=== PATIENT | female | born 1950 ===

== ENCOUNTER 2022-06-09 10:08 | Inpatient (IN) | payer MEDICARE, SELFPAY ==
--- NOTE | ~2022-06-09 | XR_ITS ---
EXAMINATION: XR CHEST CLINICAL INFORMATION: Shortness of breath COMPARISON: None available. TECHNIQUE: 2 views of the chest were obtained. FINDINGS: Heart is enlarged. Aortic calcification seen. Central vascular prominence. There is mild reticular prominence, with hazy opacities in the right mid to lower lung. Question hazy opacity left lower lung. These findings could represent mild pulmonary edema versus inflammatory/infectious process. Small right pleural effusion. No pneumothorax. Thoracic spine degeneration. XR/XR chest 2V IMPRESSION: Cardiomegaly. Central vascular congestion. Reticular prominence, hazy opacities in the lower lungs could reflect mild pulmonary edema or could represent infectious/inflammatory process. Small right effusion.
[2022-06-09 10:21] VITALS: BP 208/53; PULSE 66; RESP 18; TEMP 36.1; O2SAT 99; BMI 30.4
--- NOTE | 2022-06-09 10:27 | ECG_ITS ---
Test Reason : hypertension Blood Pressure : / mmHG Vent. Rate : 063 BPM Atrial Rate : 063 BPM P-R Int : 186 ms QRS Dur : 078 ms QT Int : 430 ms P-R-T Axes : 058 017 073 degrees QTc Int : 440 ms Normal sinus rhythm Normal ECG No previous ECGs available Referred By: Generic ED Physician Electronically Signed By:Hari Simpson
[2022-06-09 11:37] LABS: Basophils Percent Auto 0.7 % (0-2); Eosinophils Percent Auto 0.5 % (0-4); Hematocrit 32.5 % (37.0-47.0); Hemoglobin 10.4 g/dl (12.0-16.0); Imm Gran Abs Auto 0.03 X10*3/uL (0.00-0.03); Imm Gran Pct Auto 0.7 % (0.0-0.4); Lymphocytes Absolute Auto 0.6 X10*3/uL (1.2-4.9); Lymphocytes Percent Auto 13.2 % (20-40); MANUAL DIFF FLAG NO; Mean Corpuscular Hemoglobin 30.4 pg (27.0-33.0); Mean Platelet Volume 9.2 fL (9.4-12.3); Monocytes Absolute Auto 0.3 X10*3/uL (0.1-1.2); Monocytes Percent Auto 7.9 % (2-11); Neutrophils Absolute Auto 3.2 x10*3/uL (2.0-8.3); Platelet Count 206 X10*3/uL (160-400); Red Blood Count 3.42 X10*6/uL (4.20-5.50); Red Cell Distribution Width 13.9 % (11.0-16.0); White Blood Count 4.2 X10*3/uL (4.8-10.8)
[2022-06-09 12:00] VITALS: BP 124/43; PULSE 63; RESP 13; TEMP 36.6; O2SAT 97
[2022-06-09 12:08] LABS: B Type Natriuretic Peptide 923 pg/mL (<100)
[2022-06-09 12:12] LABS: Troponin-I High Sensitivity 38.3 ng/L (<3.5-17.0)
[2022-06-09 12:21] LABS: Alanine Aminotransferase 18 U/L (0-31); Albumin Level 3.7 g/dL (3.5-5.0); Alkaline Phosphatase 172 U/L (39-117); Anion Gap 18 (12-20); Aspartate Amino Transferase 19 U/L (5-31); Bilirubin Total 0.6 mg/dL (0.0-1.0); Blood Urea Nitrogen 59 mg/dL (9-16); Calcium 8.6 mg/dL (8.4-10.2); Carbon Dioxide 23 mmol/L (22-29); Chloride 102 mmol/L (96-108); Estimated Glomerular Filt Rate 5; Glucose Random 122 mg/dL (60-115); Sodium 137 mmol/L (135-145); Total Protein 6.3 g/dL (6.5-8.0)
--- NOTE | 2022-06-09 12:38 | ED_ITS ---
HPI - General Adult General Chief complaint: General Medical Stated complaint: Needs dialysis Time Seen by Provider: 06/09/22 10:52 Source: patient and family Mode of arrival: ambulatory History of Present Illness HPI narrative: 72-year-old female known diabetic and on dialysis in [facility] on Wednesday, Wednesday, Wednesday left fluid on vacation in came up to [place] and does not have a location for dialysis due to confusion with the insurance company. Patient states that she otherwise feels well but she missed her dialysis yesterday. However, on reviewing the triage note it appears that patient reported abdominal cramping with nausea/vomiting/diarrhea and headaches since yesterday. However, patient is had no nausea/vomiting/diarrhea since arrival to the emergency room. Related Data Allergies Allergy/AdvReac Type Severity Reaction Status Date / Time codeine Allergy Nausea and Verified 06/09/22 11:26 Vomiting Review of Systems Review of Systems: Pertinent positives and negatives as stated in HPI [facility] Past Medical History Source: nursing notes reviewed Social History Social History Advance Directives: No Advance Directives Information Provided: Yes Physical Exam ED Vital Signs: Vital Signs - 24 hr 06/09/22 10:21 06/09/22 12:00 Temperature 96.9 F 97.8 F Pulse Rate 66 63 Respiratory Rate 18 13 Blood Pressure 208/53 H 124/43 L Pulse Oximetry 99 97 Oxygen Delivery Method Room Air Room Air BMI result Body Mass Index 30.4 VITAL SIGNS: Reviewed. GENERAL: Well developed, well nourished, in no acute distress. HEAD: Normocephalic/atraumatic EYES: PERRLA, EOMI EARS: Ext canals without abnormality NOSE: Nares patent bilateral OROPHARYNX: no oral lesions noted, posterior pharynx clear NECK: Supple, no adenopathy LUNGS: Mild rales in right base, no tachypnea, No adventitious sounds or accessory muscle use. SpO2<97> CARDIOVASCULAR: Regular rate and rhythm without noted murmurs, no JVD or lower extremity edema. ABDOMEN: Soft, non-tender, non-distended with bowel sounds. MUSCULOSKELETAL: No tenderness, deformities, or effusions noted on gross inspection. EXTREMITIES: No cyanosis, clubbing or edema; RUE: AV fistula in place with good thrill and bruit. SKIN: Inspection of the skin reveals no rashes NEUROLOGIC: Alert and oriented x 4. Strength and sensation to light touch were grossly intact x 4. Medical Decision Making Medical Decision Making MDM Narrative: 72-year-old female with history and clinical presentation consistent with missed dialysis apparently due to insurance and communication issues. Now presents here to the emergency room but is currently asymptomatic. I reviewed all investigations and my interpretation is that this patient has chronically stable laboratory results that are consistent with underlying dialysis dependency. Patient is not hypoxic. 1240: I have a page out to Nephrology to ascertain whether not we can provide dialysis for this patient. 1255: I discussed the case with Dr Da Silva who recommends admission, 10g of Lokelma, and will undergo dialysis in the morning. I discussed case with inpatient hospitalist who accepts admission. I also informed the patient of the plan. Differential Diagnosis Please see the discussion above Consult Healthcare Provider Management of the patient was discussed with: Production Control Expediter Please see the discussion above Lab Data Please see the discussion above 06/09/22 11:31 06/09/22 11:31 Labs: Lab Results 06/09/22 06/09/22 06/09/22 Range/Units 11:31 11:31 11:31 WBC 4.2 L (4.8-10.8) X10*3/uL RBC 3.42 L (4.20-5.50) X10*6/uL Hgb 10.4 L (12.0-16.0) g/dl Hct 32.5 L (37.0-47.0) % MCV 95.0 (80.0-98.0) fL MCH 30.4 (27.0-33.0) pg MCHC 32.0 (31.0-35.0) g/dl RDW 13.9 (11.0-16.0) % Plt Count 206 (160-400) X10*3/uL MPV 9.2 L (9.4-12.3) fL Immature Gran % (Auto) 0.7 H (0.0-0.4) % Neut % (Auto) 77.0 H (45-73) % Lymph % (Auto) 13.2 L (20-40) % [place] % (Auto) 7.9 (2-11) % Eos % (Auto) 0.5 (0-4) % Baso % (Auto) 0.7 (0-2) % Lymph # (Auto) 0.6 L (1.2-4.9) X10*3/uL [place] # (Auto) 0.3 (0.1-1.2) X10*3/uL Eos # (Auto) 0.0 (0.0-0.4) X10*3/uL Baso # (Auto) 0.0 (0.0-0.2) X10*3/uL Abs Immat Gran (auto) 0.03 (0.00-0.03) X10*3/uL Absolute Neuts (auto) 3.2 (2.0-8.3) x10*3/uL Absolute Nucleated RBC 0.000 (0.0-0.012) X10*3/uL Nucleated RBC % (auto) 0.0 (0.0-0.2) /100WBC Sodium 137 (135-145) mmol/L Potassium 6.0 H* (3.3-5.1) mmol/L Chloride 102 (96-108) mmol/L Carbon Dioxide 23 (22-29) mmol/L Anion Gap 18 (12-20) BUN 59 H (9-16) mg/dL Creatinine 7.46 H* (0.5-1.4) mg/dL Estim Creat Clear Calc 6.0 Estimated GFR 5 Random Glucose 122 H (60-115) mg/dL Calcium 8.6 (8.4-10.2) mg/dL Total Bilirubin 0.6 (0.0-1.0) mg/dL AST 19 (5-31) U/L ALT 18 (0-31) U/L Alkaline Phosphatase 172 H (39-117) U/L Troponin I High Sens 38.3 H (<3.5-17.0) ng/L B-Natriuretic Peptide (<100) pg/mL Total Protein 6.3 L (6.5-8.0) g/dL Albumin 3.7 (3.5-5.0) g/dL 06/09/ Range/Units 11:31 WBC (4.8-10.8) X10*3/uL RBC (4.20-5.50) X10*6/uL Hgb (12.0-16.0) g/dl Hct (37.0-47.0) % MCV (80.0-98.0) fL MCH (27.0-33.0) pg MCHC (31.0-35.0) g/dl RDW (11.0-16.0) % Plt Count (160-400) X10*3/uL MPV (9.4-12.3) fL Immature Gran % (Auto) (0.0-0.4) % Neut % (Auto) (45-73) % Lymph % (Auto) (20-40) % [place] % (Auto) (2-11) % Eos % (Auto) (0-4) % Baso % (Auto) (0-2) % Lymph # (Auto) (1.2-4.9) X10*3/uL [place] # (Auto) (0.1-1.2) X10*3/uL Eos # (Auto) (0.0-0.4) X10*3/uL Baso # (Auto) (0.0-0.2) X10*3/uL Abs Immat Gran (auto) (0.00-0.03) X10*3/uL Absolute Neuts (auto) (2.0-8.3) x10*3/uL Absolute Nucleated RBC (0.0-0.012) X10*3/uL Nucleated RBC % (auto) (0.0-0.2) /100WBC Sodium (135-145) mmol/L Potassium (3.3-5.1) mmol/L Chloride (96-108) mmol/L Carbon Dioxide (22-29) mmol/L Anion Gap (12-20) BUN (9-16) mg/dL Creatinine (0.5-1.4) mg/dL Estim Creat Clear Calc Estimated GFR Random Glucose (60-115) mg/dL Calcium (8.4-10.2) mg/dL Total Bilirubin (0.0-1.0) mg/dL AST (5-31) U/L ALT (0-31) U/L Alkaline Phosphatase (39-117) U/L Troponin I High Sens (<3.5-17.0) ng/L B-Natriuretic Peptide 923 H (<100) pg/mL Total Protein (6.5-8.0) g/dL Albumin (3.5-5.0) g/dL Independent Interpretation I performed an independent interpretation of an: EKG Interpretation: Normal sinus rhythm, HR-63, no STEMI, NJ/QRS/QTC is within normal limits, no noted peaked T-waves. Discharge Plan Discharge Clinical Impression: ESRD needing dialysis, Hyperkalemia Patient Disposition: Admitted As Inpatient
--- NOTE | 2022-06-09 13:00 | PC.NURSE ---
pt a+o x4, pt vacationing from [place], on dialysis mwf. did not have dialysis yesterday, brought to ed to have dialysis done.
--- NOTE | 2022-06-09 13:30 | P.HPHOSP_ITS ---
The patient was seen and evaluated with PAT Morse. I agree with her note, assessment and plan with the following. The patient needs admission for dialysis and nephrology eval pending safe discharge plan and further work up as listed Rest of evaluations by IRRIGATION WORKER note. History of Present Illness Date of Service: 06/09/22 Attending physician on admission: Mavis Del Castillo Chief Complaint: n/v/d, esrd 72-year-old female with history of hypothyroidism retention, coronary artery disease, ESRD on dialysis MWF, mild intermittent asthma, insulin-dependent type 2 diabetes, and anemia of chronic disease presented to the ED as she missed her dialysis appointment yesterday. She is visiting [place] from [place] and prior to arrival has set up dialysis appointment yesterday but apparently there was some confusion with the insurance company and she was not dialyzed. The patient also reports some nausea, vomiting, diarrhea, and headaches since yesterday but no episodes since arrival. Apparently on arrival, was quite hypertensive at 208/53 but this 124/43 without any therapeutic intervention. Vitals otherwise stable. Hematology studies without significant abnormality. Creatinine 7.46, BUN 59. Sodium 137, potassium 6.0, chloride 102, CO2 23, A/G 18. Initial troponin 38.3, repeat pending. BNP 923 EKG showing NSR, rate 63, No ST/T wave abnormality. CXR report pending though on my review possible right sided pleural effusion and pulmonary vascular congestion. She does deny any shortness of breath, dyspnea on exertion, orthopnea, palpitations, chest pain. ED provider discussed case with Dr. Ramsey who is recommending admission for dialysis tomorrow. Review of Systems Review of Systems: General: No fevers, malaise, unintentional weight loss HEENT: No blurred vision, diplopia. No sore throat, nasal congestion, rhinorrhea, sinus pain, ear pain Cardiovascular: No chest pain, palpitations, or leg edema Respiratory: No shortness of breath, wheezing, cough GI: +n/v/d. No abdominal pain, constipation, melena, hematochezia : No dysuria, hematuria, increased urinary frequency, decreased urinary output MSK: No myalgia, back pain Neuro: No weakness, paresthesias. +headache Skin: No rashes or lesions [facility] Medical History (Updated 06/09/22 @ 13:42 by PAT Morse) Anemia of chronic disease Asthma AV fistula ESRD needing dialysis HTN (hypertension) Hypothyroid Type 2 diabetes mellitus Social History (Updated 06/09/22 @ 13:43 by PAT Morse) Household Members: None Housing: Apartment Do you presently have visiting nurse or other home services: No Alcohol intake: never Patient Tobacco Use Status: Former Tobacco user service: No Current occupational status: retired Meds Allergies Allergy/AdvReac Type Severity Reaction Status Date / Time codeine Allergy Nausea and Verified 06/09/22 11:26 Vomiting Active Medications: Current Medications Acetaminophen (Acetaminophen 325 Mg Tablet) 650 mg PO Q6H PRN PRN Reason: Pain, Mild (Pain Scale 1-3) Heparin Sodium (Porcine) (Heparin Sodium,Porcine 5,000 Unit/Ml Vial) 5,000 unit SUBCUT Q12H TORITO Lidocaine HCl (Lidocaine Hcl 1 % Mpf 2 Ml Vial) 0.5 ml SUBCUT MOWEFR@1645 TORITO Ondansetron HCl (Ondansetron Hcl 4 Mg/2 Ml Vial) 4 mg IVPUSH Q8H PRN PRN Reason: Nausea and Vomiting Sodium Chloride (0.9 % Sodium Chloride Flush 3 Ml Syringe) 3 ml IVFLUSH QSHIFT TORITO Home Medications Medication Instructions Recorded Confirmed Last Taken Type ascorbic acid (vitamin C) 1,000 mg 1,000 mg PO DAILY 06/09/22 06/09/22 06/09/22 History tablet (Vitamin C) aspirin 81 mg tablet,delayed 81 mg PO DAILY 06/09/22 06/09/22 06/09/22 History release bumetanide 2 mg tablet 1 mg PO BID 06/09/22 06/09/22 06/09/22 History carvedilol 25 mg tablet 25 mg PO BID 06/09/22 06/09/22 06/09/22 History cholecalciferol (vitamin D3) 50 50 mcg PO DAILY 06/09/22 06/09/22 06/09/22 History mcg (2,000 unit) tablet clopidogrel 75 mg tablet 75 mg PO DAILY 06/09/22 06/09/22 06/09/22 History cyanocobalamin (vitamin B-12) 1,000 mcg PO DAILY 06/09/22 06/09/22 06/09/22 History 1,000 mcg tablet hydralazine 50 mg tablet 50 mg PO TID 06/09/22 06/09/22 06/09/22 History insulin NPH isoph U-100 human 100 8 unit subcut TID 06/09/22 06/09/22 Unknown History unit/mL (3 mL) subcutaneous pen (Novolin N FlexPen) insulin glargine 100 unit/mL (3 7 unit subcut BEDTIME 06/09/22 06/09/22 Unknown History mL) subcutaneous pen (Lantus Solostar U-100 Insulin) isosorbide mononitrate 60 mg 60 mg PO DAILY 06/09/22 06/09/22 06/09/22 History tablet,extended release 24 hr levothyroxine 150 mcg tablet 150 mcg PO DAILY@0600 06/09/22 06/09/22 06/09/22 History nifedipine 30 mg tablet,extended 30 mg PO DAILY 06/09/22 06/09/22 06/09/22 History release rosuvastatin 20 mg tablet 20 mg PO BEDTIME 06/09/22 06/09/22 06/08/22 History Physical Exam Vital Signs and Narrative: Vital Signs: Last Vital Signs Temp 97.8 F 06/09/22 12:00 Pulse 63 06/09/22 12:00 Resp 13 06/09/22 12:00 BP 124/43 L 06/09/22 12:00 Pulse Ox 97 06/09/22 12:00 O2 Del Method Room Air 06/09/22 12:00 BMI result Body Mass Index 30.4 Constitutional - Awake and Alert, No apparent distress Eyes - PERRLA, EOMI Cardiovascular - S1S2, RRR, No edema Respiratory - Normal lung expansion, Normal respiratory effort, No respiratory distress, CTA bilaterally Gastrointestinal - NT / ND; +BS; No rebound or guarding Extremities - no calf tenderness bilaterally, no swelling. AV fistula in place right arm Skin - Warm/Dry Neurological - Alert & oriented x3 Psychological - Appropriate affect Results Labs 06/09/22 11:31 06/09/22 11:31 Labs: Laboratory Results - last 24 hr 06/09/22 06/09/22 06/09/22 11:31 11:31 11:31 MCV 95.0 MCH 30.4 MCHC 32.0 RDW 13.9 Plt Count 206 MPV 9.2 L Immature Gran % (Auto) 0.7 H Neut % (Auto) 77.0 H Lymph % (Auto) 13.2 L [place] % (Auto) 7.9 Eos % (Auto) 0.5 Baso % (Auto) 0.7 Lymph # (Auto) 0.6 L [place] # (Auto) 0.3 Eos # (Auto) 0.0 Baso # (Auto) 0.0 Abs Immat Gran (auto) 0.03 Absolute Neuts (auto) 3.2 Absolute Nucleated RBC 0.000 Nucleated RBC % (auto) 0.0 Anion Gap 18 Estim Creat Clear Calc 6.0 Estimated GFR 5 Random Glucose 122 H Calcium 8.6 Total Bilirubin 0.6 AST 19 ALT 18 Alkaline Phosphatase 172 H Troponin I High Sens 38.3 H B-Natriuretic Peptide Total Protein 6.3 L Albumin 3.7 06/09/22 11:31 MCV MCH MCHC RDW Plt Count MPV Immature Gran % (Auto) Neut % (Auto) Lymph % (Auto) [place] % (Auto) Eos % (Auto) Baso % (Auto) Lymph # (Auto) [place] # (Auto) Eos # (Auto) Baso # (Auto) Abs Immat Gran (auto) Absolute Neuts (auto) Absolute Nucleated RBC Nucleated RBC % (auto) Anion Gap Estim Creat Clear Calc Estimated GFR Random Glucose Calcium Total Bilirubin AST ALT Alkaline Phosphatase Troponin I High Sens B-Natriuretic Peptide 923 H Total Protein Albumin Assessment and Plan (1) ESRD needing dialysis: Status: Acute (2) Hyperkalemia: Status: Acute Plan 72-year-old female with history of hypothyroidism retention, coronary artery disease, ESRD on dialysis MWF, mild intermittent asthma, insulin-dependent type 2 diabetes, and anemia of chronic disease admitted for ESRD on dialysis with hyperkalemia #Acute hyperkalemia- 2/2 ESRD -EKG without peaked t's -K 6.0, given 10mg lokelma -Dialysis as planned per nephro -Monitor on telemetry #ESRD - AV fistula right arm -Creat 7.46, BUN 59 - Plan for dialysis tomorrow am per nephro -Apprecaite nephro input # insulin-dependent type 2 diabetes-without hyperglycemia -dose adjusted basal insulin -Humalog on sliding scale -diabetic diet -POC glucose #Mood disorder -continue home meds #CAD -continue asa, bb, statin, isosorbide #Hypothyroidism -continue levothyroxine #HTN- reasonably controlled -continue home meds #Elevated BNP/elevated trop- no sob, cp -likely cardiorenal -repeat trop pending -EKG nonischemic -CXR pending -Continue bumex DVT prophylaxis- heparin Full code Pt require inpt stay at least 2 midnights for management of ESRD requiring dialysis with hyperkalemia Time Spent With Patient Time: Total time managing care of this patient today ____ minutes. Quality Stroke Does the patient have a stroke diagnosis?: No VTE Prior VTE?: No VTE Risk Level:: Medical - moderate - high VTE Device Contraindication: Treatment Not Indicated VTE Drug Contraindication: N/A - Med Ordered
[2022-06-09] MEDS: Heparin Sodium,Porcine 5,000 UNIT/ML VIAL 5000 UNIT SUBCUT (13:48)
[2022-06-09] MEDS: Sodium Zirconium Cyclosilicate 10 GM POWD.PACK PO (13:48)
--- NOTE | 2022-06-09 13:57 | PHA.MEDREC ---
Pharmacy Consult ? Medication Reconciliation Pharmacy has completed the medication reconciliation. Patient able to communicate in Khmer, she had list at bedside. Able to confirm doses and timing
[2022-06-09 14:00] VITALS: BP 136/40; PULSE 67; RESP 13; TEMP 36.6; O2SAT 97
[2022-06-09 14:40] LABS: Troponin-I High Sensitivity 34.9 ng/L (<3.5-17.0)
--- NOTE | 2022-06-09 17:15 | PC.NURSE ---
report given to DORI Bucio. pt transported to room 473 by transporter.
[2022-06-09 17:20] VITALS: BP 180/52; PULSE 78; RESP 20; TEMP 36.6; O2SAT 91
[2022-06-09 17:22] LABS: Glucose, Whole Blood 276 mg/dL (60-115)
[2022-06-09] MEDS: Insulin Lispro 100 UNIT/ML 3 ML VIAL SUBCUT ×2 (17:25→21:48)
[2022-06-09 17:37] VITALS: BMI 30.4
[2022-06-09] MEDS: hydrALAZINE HCl 50 MG TABLET PO ×2 (17:54→21:46)
[2022-06-09 19:22] VITALS: BP 178/68; PULSE 71; RESP 18; TEMP 36.5; O2SAT 96
[2022-06-09 20:31] LABS: Glucose, Whole Blood 180 mg/dL (60-115)
[2022-06-09] MEDS: carvediloL 25 MG TABLET PO (21:46)
[2022-06-09] MEDS: Bumetanide 1 MG TABLET PO (21:46)
[2022-06-09] MEDS: Atorvastatin Calcium 80 MG TABLET PO (21:46)
[2022-06-09] MEDS: 0.9 % Sodium Chloride Flush 3 ML SYRINGE IVFLUSH (21:46)
[2022-06-09] MEDS: Insulin Glargine,Hum.rec.anlog 100 UNIT/ML 10 ML VIAL 7 UNIT SUBCUT (21:48)
[2022-06-09 23:07] VITALS: BP 151/67; PULSE 63; RESP 18; TEMP 36.4; O2SAT 92
[2022-06-10] VITALS (8 sets, daily range): BP systolic 130–215; BP diastolic 45–96; PULSE 58–68; RESP 18–20; TEMP 35.8–37; O2SAT 91–100
[2022-06-10] MEDS: Heparin Sodium,Porcine 5,000 UNIT/ML VIAL 5000 UNIT SUBCUT ×2 (02:21→13:26)
[2022-06-10] MEDS: Levothyroxine Sodium 150 MCG TABLET PO (06:17)
[2022-06-10] MEDS: Aspirin Enteric Coated 81 MG TABLET.DR PO (07:26)
[2022-06-10] MEDS: 0.9 % Sodium Chloride Flush 3 ML SYRINGE IVFLUSH ×3 (07:26→21:39)
[2022-06-10] MEDS: Clopidogrel Bisulfate 75 MG TABLET PO (07:27)
[2022-06-10] MEDS: Ascorbic Acid 500 MG TABLET 1000 MG PO (07:27)
[2022-06-10] MEDS: Cholecalciferol (Vitamin D3) 25 MCG TABLET 50 MCG PO (07:27)
[2022-06-10] MEDS: Cyanocobalamin (Vitamin B-12) 1,000 MCG TABLET 1000 MCG PO (07:27)
[2022-06-10] MEDS: Acetaminophen 325 MG TABLET 650 MG PO (07:32)
[2022-06-10 07:48] LABS: Glucose, Whole Blood 122 mg/dL (60-115)
[2022-06-10 08:03] LABS: MANUAL DIFF FLAG NO
[2022-06-10 08:13] LABS: Basophils Percent Auto 0.8 % (0-2); Eosinophils Percent Auto 0.3 % (0-4); Hematocrit 31.1 % (37.0-47.0); Imm Gran Abs Auto 0.02 X10*3/uL (0.00-0.03); Imm Gran Pct Auto 0.5 % (0.0-0.4); Lymphocytes Absolute Auto 0.6 X10*3/uL (1.2-4.9); Lymphocytes Percent Auto 15.1 % (20-40); Mean Corpuscular HGB Conc 32.2 g/dl (31.0-35.0); Mean Corpuscular Hemoglobin 30.4 pg (27.0-33.0); Mean Corpuscular Volume 94.5 fL (80.0-98.0); Mean Platelet Volume 9.8 fL (9.4-12.3); Monocytes Absolute Auto 0.3 X10*3/uL (0.1-1.2); Monocytes Percent Auto 7.7 % (2-11); Neutrophils Percent Auto 75.6 % (45-73); Platelet Count 214 X10*3/uL (160-400); Red Blood Count 3.29 X10*6/uL (4.20-5.50); Red Cell Distribution Width 13.8 % (11.0-16.0); White Blood Count 3.9 X10*3/uL (4.8-10.8)
[2022-06-10 08:42] LABS: Anion Gap 18 (12-20); Blood Urea Nitrogen 64 mg/dL (9-16); Calcium 8.1 mg/dL (8.4-10.2); Carbon Dioxide 22 mmol/L (22-29); Chloride 102 mmol/L (96-108); Creatinine Clr Calc Pharmacy 5.8; Estimated Glomerular Filt Rate 5; Glucose Random 104 mg/dL (60-115); Potassium 5.7 mmol/L (3.3-5.1); Sodium 136 mmol/L (135-145)
--- NOTE | 2022-06-10 08:47 | MHC.CM.PN ---
Addendum entered by Andie Navarro RN 06/10/22 09:26: CLARIFICATION PT HAS NOT BEEN VACCINATED FOR COVID 19 Addendum entered by Andie Navarro RN 06/10/22 08:52: PT USES [facility] LANIER AND SURFACE SUPERVISOR IS DR LADY MADRIGAL AT [facility] IN [place]. 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 PT VERIFIFES PCP IS CAREY BINGHAM, [facility] X2 AND REPORTS SON RUSSELL THAKUR IS HER HCP, PT DOES NOT HAVE COPY WITH HER. DC PLAN: RETURN TO SON'S HOME W/SON FOR TRANSPORT
[2022-06-10 09:12] LABS: HBS Num1 21.98 mIU/mL (0-7.99); HBc Num1 0.13 S/CO (0.00-0.79); HBsAGNum1 0.23 S/CO (0.00-0.99); Hepatitis B Core Antibody Nonreactive (Nonreactive); Hepatitis B Surface Antigen Negative (Negative); ~Hepatitis B Surface Antibody REACTIVE (Nonreactive)
--- NOTE | 2022-06-10 11:40 | P.CONNP_ITS ---
History of Present Illness Reason for Consult Consult date: 06/10/22 Chief Complaint Chief complaint: esrd dialysis hyperkalemia History of Present Illness Narrative: 72-year-old female with ESRD on dialysis MWF presented to the ED as she missed her dialysis appointment yesterday.? She is visiting [place] from [place] .?She had some nausea, vomiting, diarrhea, and headaches since yesterday but no episodes since arrival.? Apparently on arrival, was quite hypertensive at 208/53 but this 124/43 without any therapeutic intervention.? Vitals otherwise stable.? Hematology studies without significant abnormality.? Creatinine 7.46, BUN 59.? Sodium 137, potassium 6.0, chloride 102, CO2 23, A/G 18.? Initial troponin 38.3, repeat pending.? BNP 923 EKG showing NSR, rate 63, No ST/T wave abnormality.? CXR report pending though on my review possible right sided pleural effusion and pulmonary vascular congestion.? She does deny any shortness of breath, dyspnea on exertion, orthopnea, palpitations, chest pain.? Nephrology has been consulted to assist in her clinical care during her current hospital stay Review of Systems Review of Systems Yes all other systems are reviewed and are negative [facility] Past Medical History Medical History (Updated 06/09/22 @ 13:42 by PAT Morse) Anemia of chronic disease Asthma AV fistula ESRD needing dialysis HTN (hypertension) Hypothyroid Type 2 diabetes mellitus Social History Social History (Updated 06/09/22 @ 13:43 by PAT Morse) Household Members: None Housing: Apartment Do you presently have visiting nurse or other home services: No Alcohol intake: never Patient Tobacco Use Status: Former Tobacco user Use of substances other than those prescribed or required for medical reasons: No Currently Displaying Signs/Symptoms of Drug Intoxication Withdrawal: No Any prior treatment program specific to substance use: No Have you been hit, kicked, punched, or otherwise hurt by someone within the past year? If so, by whom?: No Do you feel safe in your current relationship?: Yes Is there a partner from a previous relationship who is making you feel unsafe now?: No Are you made to feel afraid or neglected: No [facility] Healthcare Practices: Nondenominational Advance Directives: No Advance Directives Information Provided: Yes Do you have thoughts of harming others: None Do you have a plan to hurt others: No Plan Recently lost weight without trying: Yes How much weight loss: Unsure Eating poorly because of decreased appetite: No Nutrition screen score: 4 Nutrition Risks: No Nutritional Risk Patient : No : No service: No Current occupational status: retired [employer] Allergies Allergy/AdvReac Type Severity Reaction Status Date / Time codeine Allergy Nausea and Verified 06/09/22 11:26 Vomiting Active Medications: Current Medications Acetaminophen (Acetaminophen 325 Mg Tablet) 650 mg PO Q6H PRN PRN Reason: Pain, Mild (Pain Scale 1-3) Last Admin: 06/10/22 07:32 Dose: 650 mg Ascorbic Acid (Ascorbic Acid 500 Mg Tablet) 1,000 mg PO DAILY [facility] Last Admin: 06/10/22 07:27 Dose: 1,000 mg Aspirin (Aspirin Enteric Coated 81 Mg Tablet.Dr) 81 mg PO DAILY [facility] Last Admin: 06/10/22 07:26 Dose: 81 mg Atorvastatin Calcium (Atorvastatin Calcium 80 Mg Tablet) 80 mg PO BEDTIME [facility] Last Admin: 06/09/22 21:46 Dose: 80 mg Bumetanide (Bumetanide 1 Mg Tablet) 1 mg PO BID [facility]; Protocol Last Admin: 06/09/22 21:46 Dose: 1 mg Carvedilol (Carvedilol 25 Mg Tablet) 25 mg PO BID [facility]; Protocol Last Admin: 06/09/22 21:46 Dose: 25 mg Clopidogrel Bisulfate (Clopidogrel Bisulfate 75 Mg Tablet) 75 mg PO DAILY [facility] Last Admin: 06/10/22 07:27 Dose: 75 mg Cyanocobalamin (Cyanocobalamin (Vitamin B-12) 1,000 Mcg Tablet) 1,000 mcg PO DAILY [facility] Last Admin: 06/10/22 07:27 Dose: 1,000 mcg Glucose (Glucose Gel 15 Gm Gel..Gram.) 15 gm PO Q15M PRN; Protocol PRN Reason: per Hypoglycemia Standing Ord. Heparin Sodium (Porcine) (Heparin Sodium,Porcine 5,000 Unit/Ml Vial) 5,000 unit SUBCUT Q12H [facility] Last Admin: 06/10/22 02:21 Dose: 5,000 unit Hydralazine HCl (Hydralazine Hcl 50 Mg Tablet) 50 mg PO TID [facility]; Protocol Last Admin: 06/09/22 21:46 Dose: 50 mg Dextrose (D10) 250 mls @ 750 mls/hr IV Q15M PRN; Protocol PRN Reason: per Hypoglycemia Standing Ord. Insulin Glargine (Insulin Glargine,Hum.Rec.Anlog 100 Unit/Ml 10 Ml Vial) 7 unit SUBCUT BEDTIME [facility] Last Admin: 06/09/22 21:48 Dose: 7 unit Insulin Human Lispro (Insulin Lispro 100 Unit/Ml 3 Ml Vial) 0 unit SUBCUT QIDACHS [facility]; Protocol Last Admin: 06/10/22 07:27 Dose: Not Given Isosorbide Mononitrate (Isosorbide Mononitrate 60 Mg Tab.Er.24h) 60 mg PO DAILY [facility]; Protocol Levothyroxine Sodium (Levothyroxine Sodium 150 Mcg Tablet) 150 mcg PO DAILY@0600 [facility] Last Admin: 06/10/22 06:17 Dose: 150 mcg Lidocaine HCl (Lidocaine Hcl 1 % Mpf 2 Ml Vial) 0.5 ml SUBCUT MOWEFR@1645 [facility] Nifedipine (Nifedipine Er 30 Mg Tab.Er.24) 30 mg PO DAILY [facility] Ondansetron HCl (Ondansetron Hcl 4 Mg/2 Ml Vial) 4 mg IVPUSH Q8H PRN PRN Reason: Nausea and Vomiting Sodium Chloride (0.9 % Sodium Chloride Flush 3 Ml Syringe) 3 ml IVFLUSH QSHIFT [facility] Last Admin: 06/10/22 07:26 Dose: 3 ml Vitamin D (Cholecalciferol (Vitamin D3) 25 Mcg Tablet) 50 mcg PO DAILY [facility] Last Admin: 06/10/22 07:27 Dose: 50 mcg Home Medications Medication Instructions Recorded Confirmed Last Taken Type ascorbic acid (vitamin C) 1,000 mg 1,000 mg PO DAILY 06/09/22 06/09/22 06/09/22 History tablet (Vitamin C) aspirin 81 mg tablet,delayed 81 mg PO DAILY 06/09/22 06/09/22 06/09/22 History release bumetanide 2 mg tablet 1 mg PO BID 06/09/22 06/09/22 06/09/22 History carvedilol 25 mg tablet 25 mg PO BID 06/09/22 06/09/22 06/09/22 History cholecalciferol (vitamin D3) 50 50 mcg PO DAILY 06/09/22 06/09/22 06/09/22 History mcg (2,000 unit) tablet clopidogrel 75 mg tablet 75 mg PO DAILY 06/09/22 06/09/22 06/09/22 History cyanocobalamin (vitamin B-12) 1,000 mcg PO DAILY 06/09/22 06/09/22 06/09/22 History 1,000 mcg tablet hydralazine 50 mg tablet 50 mg PO TID 06/09/22 06/09/22 06/09/22 History insulin NPH isoph U-100 human 100 8 unit subcut TID 06/09/22 06/09/22 Unknown History unit/mL (3 mL) subcutaneous pen (Novolin N FlexPen) insulin glargine 100 unit/mL (3 7 unit subcut BEDTIME 06/09/22 06/09/22 Unknown History mL) subcutaneous pen (Lantus Solostar U-100 Insulin) isosorbide mononitrate 60 mg 60 mg PO DAILY 06/09/22 06/09/22 06/09/22 History tablet,extended release 24 hr levothyroxine 150 mcg tablet 150 mcg PO DAILY@0600 06/09/22 06/09/22 06/09/22 History nifedipine 30 mg tablet,extended 30 mg PO DAILY 06/09/22 06/09/22 06/09/22 History release rosuvastatin 20 mg tablet 20 mg PO BEDTIME 06/09/22 06/09/22 06/08/22 History Physical Exam Vital Signs: Last Vital Signs Temp 97.8 F 06/10/22 07:20 Pulse 68 06/10/22 07:20 Resp 20 06/10/22 07:20 BP 190/62 H 06/10/22 07:20 Pulse Ox 94 06/10/22 07:20 O2 Del Method Room Air 06/10/22 07:20 BMI result Body Mass Index 30.4 Const General: no acute distress Orientation/consciousness: patient oriented x3 Eyes EOM: EOMs intact bilaterally Neck Neck: Yes supple Resp Auscultation: diminished lung sounds Cardio Rate: regular rate GI Palpation (GI): Soft to palpation Neuro General: patient oriented x3 and moves all extremities Extrem Other: AVF + Results Lab Results 06/10/22 07:32 06/10/22 07:32 Lab results: Chemistry 06/09/22 06/10/22 11:31 07:32 Sodium 137 136 Potassium 6.0 H* 5.7 H Carbon Dioxide 23 22 BUN 59 H 64 H Creatinine 7.46 H* 7.81 H* Calcium 8.6 8.1 L Hematology 06/09/22 06/10/22 11:31 07:32 WBC 4.2 L 3.9 L Hgb 10.4 L 10.0 L Plt Count 206 214 Assessment and Plan (1) ESRD needing dialysis: Status: Acute Time Spent With Patient Time: Dialysis dependent; Typically dialyzes F ( [facility]) Hyperkalemic. Has a functioning AVF; Shall dialyze today 2 Gram K/ 2 Gram Na/Phos restricted diet with fluid restriction Phos binders with meals. Needs to bring dry weight down Likely will need more BP medications; No indication for EPO today Seen on HD this AM as well. Has requested outpt HD spot while being a transient in [place] Procedures Date of Service Date of Service: 06/10/22
[2022-06-10 11:51] LABS: Glucose, Whole Blood 143 mg/dL (60-115)
--- NOTE | 2022-06-10 13:21 | P.PNIM_ITS ---
Subjective Subjective Date of Service: 06/10/22 Interval History: no complaints Physical Exam Vital Signs: Vital Signs: Last Vital Signs Temp 97.2 F 06/10/22 12:31 Pulse 62 06/10/22 12:31 Resp 20 06/10/22 12:31 BP 215/96 H 06/10/22 12:31 Pulse Ox 100 06/10/22 12:31 O2 Del Method Room Air 06/10/22 12:31 BMI result Body Mass Index 30.4 General: AO X 3, no acute distress Resp: CTA bilateral, no accessory muscles used CVS: S1,S2,RRR GI: soft, non tender, non distended Neuro: motor grossly intact, alert Psych: appropriate affect, appropriate insight Objective Data Active Medications Acetaminophen (Acetaminophen 325 Mg Tablet) 650 mg PO Q6H PRN PRN Reason: Pain, Mild (Pain Scale 1-3) Last Admin: 06/10/22 07:32 Dose: 650 mg Documented By: SUSANA Ascorbic Acid (Ascorbic Acid 500 Mg Tablet) 1,000 mg PO DAILY [facility] Last Admin: 06/10/22 07:27 Dose: 1,000 mg Documented By: SUSANA Aspirin (Aspirin Enteric Coated 81 Mg Tablet.) 81 mg PO DAILY [facility] Last Admin: 06/10/22 07:26 Dose: 81 mg Documented By: SUSANA Atorvastatin Calcium (Atorvastatin Calcium 80 Mg Tablet) 80 mg PO BEDTIME [facility] Last Admin: 06/09/22 21:46 Dose: 80 mg Documented By: TAURUS Bumetanide (Bumetanide 1 Mg Tablet) 1 mg PO BID [facility]; Protocol Last Admin: 06/09/22 21:46 Dose: 1 mg Documented By: TAURUS Carvedilol (Carvedilol 25 Mg Tablet) 25 mg PO BID [facility]; Protocol Last Admin: 06/09/22 21:46 Dose: 25 mg Documented By: TAURUS Clopidogrel Bisulfate (Clopidogrel Bisulfate 75 Mg Tablet) 75 mg PO DAILY [facility] Last Admin: 06/10/22 07:27 Dose: 75 mg Documented By: SUSANA Cyanocobalamin (Cyanocobalamin (Vitamin B-12) 1,000 Mcg Tablet) 1,000 mcg PO DAILY [facility] Last Admin: 06/10/22 07:27 Dose: 1,000 mcg Documented By: SUSANA Glucose (Glucose Gel 15 Gm Gel..Gram.) 15 gm PO Q15M PRN; Protocol PRN Reason: per Hypoglycemia Standing Ord. Heparin Sodium (Porcine) (Heparin Sodium,Porcine 5,000 Unit/Ml Vial) 5,000 unit SUBCUT Q12H [facility] Last Admin: 06/10/22 02:21 Dose: 5,000 unit Documented By: TAURUS Hydralazine HCl (Hydralazine Hcl 50 Mg Tablet) 50 mg PO TID [facility]; Protocol Last Admin: 06/09/22 21:46 Dose: 50 mg Documented By: TAURUS Dextrose (D10) 250 mls @ 750 mls/hr IV Q15M PRN; Protocol PRN Reason: per Hypoglycemia Standing Ord. Insulin Glargine (Insulin Glargine,Hum.Rec.Anlog 100 Unit/Ml 10 Ml Vial) 7 unit SUBCUT BEDTIME [facility] Last Admin: 06/09/22 21:48 Dose: 7 unit Documented By: TAURUS Insulin Human Lispro (Insulin Lispro 100 Unit/Ml 3 Ml Vial) 0 unit SUBCUT QIDACHS [facility]; Protocol Last Admin: 06/10/22 11:58 Dose: Not Given Documented By: SUSANA Non-Admin Reason: No Insulin Coverage Isosorbide Mononitrate (Isosorbide Mononitrate 60 Mg Tab.Er.24h) 60 mg PO DAILY [facility]; Protocol Levothyroxine Sodium (Levothyroxine Sodium 150 Mcg Tablet) 150 mcg PO DAILY@0600 [facility] Last Admin: 06/10/22 06:17 Dose: 150 mcg Documented By: TAURUS Lidocaine HCl (Lidocaine Hcl 1 % Mpf 2 Ml Vial) 0.5 ml SUBCUT MOWEFR@1645 [facility] Nifedipine (Nifedipine Er 30 Mg Tab.Er.24) 30 mg PO DAILY [facility] Ondansetron HCl (Ondansetron Hcl 4 Mg/2 Ml Vial) 4 mg IVPUSH Q8H PRN PRN Reason: Nausea and Vomiting Sodium Chloride (0.9 % Sodium Chloride Flush 3 Ml Syringe) 3 ml IVFLUSH QSHIFT [facility] Last Admin: 06/10/22 07:26 Dose: 3 ml Documented By: SUSANA Vitamin D (Cholecalciferol (Vitamin D3) 25 Mcg Tablet) 50 mcg PO DAILY [facility] Last Admin: 06/10/22 07:27 Dose: 50 mcg Documented By: SUSANA Labs 06/10/22 07:32 06/10/22 07:32 Labs: Laboratory Results - last 24 hr 06/09/22 06/09/22 06/09/22 14:00 17:14 20:24 MCV MCH MCHC RDW Plt Count MPV Immature Gran % (Auto) Neut % (Auto) Lymph % (Auto) [place] % (Auto) Eos % (Auto) Baso % (Auto) Lymph # (Auto) [place] # (Auto) Eos # (Auto) Baso # (Auto) Abs Immat Gran (auto) Absolute Neuts (auto) Absolute Nucleated RBC Nucleated RBC % (auto) Anion Gap Estim Creat Clear Calc Estimated GFR POC Glucose 276 H 180 H Random Glucose Calcium Troponin I High Sens 34.9 H Hep Bs Antigen Hep Bs Antibody Hep B Core Total Ab 06/10/22 06/10/22 06/10/22 07:21 07:32 07:32 MCV 94.5 MCH 30.4 MCHC 32.2 RDW 13.8 Plt Count 214 MPV 9.8 Immature Gran % (Auto) 0.5 H Neut % (Auto) 75.6 H Lymph % (Auto) 15.[address] [place] % (Auto) 7.7 Eos % (Auto) 0.3 Baso % (Auto) 0.8 Lymph # (Auto) 0.[address] [place] # (Auto) 0.3 Eos # (Auto) 0.0 Baso # (Auto) 0.0 Abs Immat Gran (auto) 0.02 Absolute Neuts (auto) 3.0 Absolute Nucleated RBC 0.000 Nucleated RBC % (auto) 0.0 Anion Gap 18 Estim Creat Clear Calc 5.8 Estimated GFR 5 POC Glucose 122 H Random Glucose 104 Calcium 8.1 L Troponin I High Sens Hep Bs Antigen Hep Bs Antibody Hep B Core Total Ab 06/10/22 06/10/22 07:32 11:45 MCV MCH MCHC RDW Plt Count MPV Immature Gran % (Auto) Neut % (Auto) Lymph % (Auto) [place] % (Auto) Eos % (Auto) Baso % (Auto) Lymph # (Auto) [place] # (Auto) Eos # (Auto) Baso # (Auto) Abs Immat Gran (auto) Absolute Neuts (auto) Absolute Nucleated RBC Nucleated RBC % (auto) Anion Gap Estim Creat Clear Calc Estimated GFR POC Glucose 143 H Random Glucose Calcium Troponin I High Sens Hep Bs Antigen Negative Hep Bs Antibody REACTIVE Hep B Core Total Ab Nonreactive Assessment and Plan (1) ESRD needing dialysis: Status: Acute Plan 72-year-old female with history of hypothyroidism, urinary retention, coronary artery disease, ESRD on dialysis MWF, mild intermittent asthma, insulin- dependent type 2 diabetes, and anemia of chronic disease admitted for ESRD on dialysis with hyperkalemia Acute hyperkalemia- 2/2 ESRD HD needs outpatient set up monitor bmp insulin-dependent type 2 diabetes-without hyperglycemia insulin CAD -continue asa, bb, statin, isosorbide Hypothyroidism -continue levothyroxine HTN coreg, imdur, hydralazine, nifedpine DVT prophylaxis- heparin Full code reason for continued hospitalization:dialysis Time Spent With Patient Time: Total time managing care of this patient today ____ minutes. Quality Stroke Does the patient have a stroke diagnosis?: No VTE Prior VTE?: No VTE Risk Level:: Medical - moderate - high VTE Device Contraindication: Treatment Not Indicated VTE Drug Contraindication: N/A - Med Ordered
[2022-06-10] MEDS: hydrALAZINE HCl 50 MG TABLET PO ×2 (13:24→21:38)
[2022-06-10] MEDS: Isosorbide Mononitrate 60 MG TAB.ER.24H PO (13:54)
[2022-06-10] MEDS: carvediloL 25 MG TABLET PO ×2 (13:54→21:38)
[2022-06-10] MEDS: NIFEdipine ER 30 MG TAB.ER.24 PO (13:54)
[2022-06-10 16:54] LABS: Glucose, Whole Blood 424 mg/dL (60-115)
[2022-06-10] MEDS: Insulin Lispro 100 UNIT/ML 3 ML VIAL SUBCUT (17:16)
[2022-06-10 21:14] LABS: Glucose, Whole Blood 129 mg/dL (60-115)
[2022-06-10] MEDS: Bumetanide 1 MG TABLET PO (21:38)
[2022-06-10] MEDS: Atorvastatin Calcium 80 MG TABLET PO (21:38)
[2022-06-10] MEDS: Insulin Glargine,Hum.rec.anlog 100 UNIT/ML 10 ML VIAL 7 UNIT SUBCUT (21:39)
[2022-06-11 03:38] VITALS: BP 149/67; PULSE 55; RESP 18; TEMP 36.9; O2SAT 96
[2022-06-11] MEDS: Levothyroxine Sodium 150 MCG TABLET PO (06:08)
[2022-06-11 07:07] VITALS: BP 150/60; PULSE 60; RESP 12; TEMP 36.4; O2SAT 95
[2022-06-11 07:19] LABS: Blood Urea Nitrogen 30 mg/dL (9-16); Calcium 8.3 mg/dL (8.4-10.2); Creatinine Clr Calc Pharmacy 9.4; Estimated Glomerular Filt Rate 9; Glucose Fasting 166 mg/dL (60-99)
[2022-06-11 07:30] LABS: Glucose, Whole Blood 140 mg/dL (60-115)
[2022-06-11 07:35] LABS: Anion Gap 15 (12-20); Carbon Dioxide 22 mmol/L (22-29); Chloride 98 mmol/L (96-108); Potassium 4.4 mmol/L (3.3-5.1); Sodium 131 mmol/L (135-145)
[2022-06-11 08:13] LABS: Hematocrit 31.5 % (37.0-47.0); Hemoglobin 10.3 g/dl (12.0-16.0); Mean Corpuscular HGB Conc 32.7 g/dl (31.0-35.0); Mean Corpuscular Volume 91.8 fL (80.0-98.0); Mean Platelet Volume 9.7 fL (9.4-12.3); Platelet Count 209 X10*3/uL (160-400); Red Blood Count 3.43 X10*6/uL (4.20-5.50); Red Cell Distribution Width 13.4 % (11.0-16.0)
[2022-06-11 08:14] LABS: White Blood Count 2.4 X10*3/uL (4.8-10.8)
[2022-06-11] MEDS: Acetaminophen 325 MG TABLET 650 MG PO (08:39)
[2022-06-11] MEDS: Clopidogrel Bisulfate 75 MG TABLET PO (08:39)
[2022-06-11] MEDS: Cholecalciferol (Vitamin D3) 25 MCG TABLET 50 MCG PO (08:39)
[2022-06-11] MEDS: Bumetanide 1 MG TABLET PO (08:40)
[2022-06-11] MEDS: Isosorbide Mononitrate 60 MG TAB.ER.24H PO (08:40)
[2022-06-11] MEDS: NIFEdipine ER 30 MG TAB.ER.24 PO (08:40)
[2022-06-11] MEDS: 0.9 % Sodium Chloride Flush 3 ML SYRINGE IVFLUSH (08:40)
[2022-06-11] MEDS: Aspirin Enteric Coated 81 MG TABLET.DR PO (08:40)
[2022-06-11] MEDS: Cyanocobalamin (Vitamin B-12) 1,000 MCG TABLET 1000 MCG PO (08:40)
[2022-06-11] MEDS: hydrALAZINE HCl 50 MG TABLET PO (08:40)
[2022-06-11] MEDS: Ascorbic Acid 500 MG TABLET 1000 MG PO (08:40)
[2022-06-11] MEDS: carvediloL 25 MG TABLET PO (08:41)
--- NOTE | 2022-06-11 09:46 | PM.DS ---
DS: Providers Provider Date of Service: 06/11/22 Date of admission: 06/09/22 13:29 Primary care physician: Unknown Physician Consults: 06/09/22 13:44 Consult to Nephrology Routine Consulting Provider: Donavan Ramsey Reason for consultation: ESRD DS: Diagnosis Discharge Diagnosis (1) ESRD needing dialysis: Status: Acute DS: Summary Hospital Course Hospital Course: from initial hpi: 72-year-old female with history of hypothyroidism retention, coronary artery disease, ESRD on dialysis MWF, mild intermittent asthma, insulin-dependent type 2 diabetes, and anemia of chronic disease presented to the ED as she missed her dialysis appointment yesterday.? She is visiting [place] from [place] and prior to arrival has set up dialysis appointment yesterday but apparently there was some confusion with the insurance company and she was not dialyzed.? The patient also reports some nausea, vomiting, diarrhea, and headaches since yesterday but no episodes since arrival.? Apparently on arrival, was quite hypertensive at 208/53 but this 124/43 without any therapeutic intervention.? Vitals otherwise stable.? Hematology studies without significant abnormality.? Creatinine 7.46, BUN 59.? Sodium 137, potassium 6.0, chloride 102, CO2 23, A/G 18.? Initial troponin 38.3, repeat pending.? BNP 923 EKG showing NSR, rate 63, No ST/T wave abnormality.? CXR report pending though on my review possible right sided pleural effusion and pulmonary vascular congestion.? She does deny any shortness of breath, dyspnea on exertion, orthopnea, palpitations, chest pain.? ED provider discussed case with Dr. Ramsey who is recommending admission for dialysis tomorrow. hospital course: Patient was admitted for acute hyperkalemia due to end-stage renal disease. She underwent hemodialysis and hyperkalemia improved. She is now set up to continue hemodialysis as outpatient. For diabetes she was continue insulin. For coronary disease she was continued on aspirin, beta-christoph, statin, Imdur. For hypothyroidism she was continued on Synthroid. For hypertension she was continued on Coreg, Imdur, hydralazine, nifedipine. Patient will be discharged home. Time Spent with Patient Time attestation: Total time managing care of this patient today ____ minutes. Discharge coordination time: Greater than 30 minutes Quality: Safe Use of Opioids Does Pt have an Active Cancer Diagnosis on the Problem List?: No Quality: Stroke Does the patient have a stroke diagnosis?: No Physical Exam Vital Signs: Vital Signs: Last Vital Signs Temp 97.6 F 06/11/22 07:07 Pulse 60 06/11/22 07:07 Resp 12 06/11/22 07:07 BP 150/60 H 06/11/22 07:07 Pulse Ox 95 06/11/22 07:07 O2 Del Method Room Air 06/11/22 07:07 BMI result Body Mass Index 30.4 General: AO X 3, no acute distress Resp: CTA bilateral, no accessory muscles used CVS: S1,S2,RRR GI: soft, non tender, non distended Neuro: motor grossly intact, alert Psych: appropriate affect, appropriate insight DS: Data Data Completed and Pending Labs on day of discharge: Laboratory Results - last 24 hr 06/10/22 06/10/22 06/10/22 11:45 16:48 21:06 WBC RBC Hgb Hct MCV MCH MCHC RDW Plt Count MPV Absolute Nucleated RBC Nucleated RBC % (auto) Sodium Potassium Chloride Carbon Dioxide Anion Gap BUN Creatinine Estim Creat Clear Calc Estimated GFR POC Glucose 143 H 424 H* 129 H Fasting Glucose Calcium 06/11/22 06/11/22 06/11/22 06:39 06:39 07:04 WBC 2.4 L RBC 3.43 L Hgb 10.3 L Hct 31.5 L MCV 91.8 MCH 30.0 MCHC 32.7 RDW 13.4 Plt Count 209 MPV 9.7 Absolute Nucleated RBC 0.000 Nucleated RBC % (auto) 0.0 Sodium 131 L Potassium 4.4 D Chloride 98 Carbon Dioxide 22 Anion Gap 15 BUN 30 H Creatinine 4.78 H* Estim Creat Clear Calc 9.4 Estimated GFR 9 POC Glucose 140 H Fasting Glucose 166 H Calcium 8.3 L Discharge Plan Discharge Anticipated Discharge Date/Time: 06/11/22 09:42 Patient Disposition: Home, Self-Care Discharge Diagnosis: esrd, hyperk Referrals: Physician,Unknown J [Primary Care Provider] - 1 Week Discharge Medications: Continued carvedilol 25 mg tablet 25 mg PO BID bumetanide 2 mg tablet 1 mg PO BID nifedipine 30 mg tablet extended release 30 mg PO DAILY clopidogrel 75 mg tablet 75 mg PO DAILY isosorbide mononitrate 60 mg tablet extended release 24 hr 60 mg PO DAILY levothyroxine 150 mcg tablet 150 mcg PO DAILY@0600 Novolin N FlexPen 100 unit/mL (3 mL) insulin pen 8 unit subcut TID rosuvastatin 20 mg tablet 20 mg PO BEDTIME insulin glargine [Lantus Solostar U-100 Insulin] 100 unit/mL (3 mL) insulin pen 7 unit subcut BEDTIME ascorbic acid (vitamin C) [Vitamin C] 1,000 mg Tablet 1,000 mg PO DAILY cyanocobalamin (vitamin B-12) 1,000 mcg Tablet 1,000 mcg PO DAILY aspirin 81 mg Tablet,Delayed Release (Dr/Ec) 81 mg PO DAILY hydralazine 50 mg Tablet 50 mg PO TID cholecalciferol (vitamin D3) 50 mcg (2,000 unit) Tablet 50 mcg PO DAILY Discharge Orders: Discharge Order (Routine); Ordered 06/11/22 Ordered By: Niraj Cisneros Diet: Advance to usual diet Activity on Discharge: As tolerated Stand Alone Forms: Patient Portal Discharge page Care Plan Goals: treat esrd Health Concerns: esrd Plan of Treatment: hd Assessment: see above
--- NOTE | 2022-06-11 09:47 | MHC.CM.PN ---
Addendum entered by Giana Wayne 06/11/22 10:20: PT WILL HAVE HD AT [facility] STARTING TOMORROW AT 5:30 AM (-W-) CONFIRMED WITH SAURAB[facility] AT [facility]. PT IS AWARE. SON UPDATED VIA Original Note: DP: PT HAS BEEN MEDICALLY CLEARED FOR DC HOME, NO SERVICES. PT WILL BE STAYING WITH SON RUSSELL WHO WILL TRANSPORT.
--- NOTE | 2022-06-11 09:56 | P.PNNP_ITS ---
Subjective Subjective Date of Service: 06/11/22 Interval history: no complaints; feels well; wants to go home Physical Exam Vital Signs: Vital Signs: Last Vital Signs Temp 97.6 F 06/11/22 07:07 Pulse 60 06/11/22 07:07 Resp 12 06/11/22 07:07 BP 150/60 H 06/11/22 07:07 Pulse Ox 95 06/11/22 07:07 O2 Del Method Room Air 06/11/22 07:07 BMI result Body Mass Index 30.4 Const: General: no acute distress Orientation/consciousness: patient oriented x3 Eyes: EOM: EOMs intact bilaterally Neck: Neck: Yes supple Resp: Auscultation: diminished lung sounds Cardio: Rate: regular rate GI: Palpation (GI): Soft to palpation Skin: General skin exam: no rashes or lesions noted Neuro: General: patient oriented x3 and moves all extremities Objective Data Labs 06/11/22 06:39 06/11/22 06:39 Labs: Laboratory Results - last 24 hr 06/10/22 06/10/22 06/10/22 11:45 16:48 21:06 WBC RBC Hgb Hct MCV MCH MCHC RDW Plt Count MPV Absolute Nucleated RBC Nucleated RBC % (auto) Sodium Potassium Chloride Carbon Dioxide Anion Gap BUN Creatinine Estim Creat Clear Calc Estimated GFR POC Glucose 143 H 424 H* 129 H Fasting Glucose Calcium 06/11/22 06/11/22 06/11/22 06:39 06:39 07:04 WBC 2.4 L RBC 3.43 L Hgb 10.3 L Hct 31.5 L MCV 91.8 MCH 30.0 MCHC 32.7 RDW 13.4 Plt Count 209 MPV 9.7 Absolute Nucleated RBC 0.000 Nucleated RBC % (auto) 0.0 Sodium 131 L Potassium 4.4 D Chloride 98 Carbon Dioxide 22 Anion Gap 15 BUN 30 H Creatinine 4.78 H* Estim Creat Clear Calc 9.4 Estimated GFR 9 POC Glucose 140 H Fasting Glucose 166 H Calcium 8.3 L Procedures Date of Service Date of Service: 06/11/22 Assessment & Plan Assessment and plan (1) ESRD needing dialysis: Status: Acute Assessment and Plan: Dialysis dependent; Typically dialyzes F ( [facility]) Has a functioning AVF; Due dialysis tomorrow 2 Gram K/ 2 Gram Na/Phos restricted diet with fluid restriction Phos binders with meals. Needs to bring dry weight down No indication for EPO today Has arranged an outpt HD spot in [facility]( Tel [phone] ) ( Continuous Wave Operator Camille Galdamez RN and SAUL Boothe) ( Pls reach out to the HD clinic before D/C) Shall arrange HD follow up in outpt HD unit Progress Note: Quality Stroke Does the patient have a stroke diagnosis?: No
== END 2022-06-11 11:19 | disposition home or self-care (01) | DRG 640 ==
LOC: HO.ED 13:21 → HO.EDOVER 13:34 → HO.IMC 16:05
PROVIDERS: Internal Medicine Nephrology; Admitting Provider Physician Assistant; Emergency Provider Student in an Organized Health Care Education/Training Program; Visit Provider Internal Medicine
DX: E87.5 Hyperkalemia (principal); N18.6 End stage renal disease; I12.0 Hypertensive chronic kidney disease with stage 5 chronic kidney disease or end stage renal disease; E11.22 Type 2 diabetes mellitus with diabetic chronic kidney disease; Z99.2 Dependence on renal dialysis; I25.10 Atherosclerotic heart disease of native coronary artery without angina pectoris; E03.9 Hypothyroidism, unspecified; J45.20 Mild intermittent asthma, uncomplicated; Z91.158 Patient's noncompliance with renal dialysis for other reason; Z88.5 Allergy status to narcotic agent; Z79.4 Long term (current) use of insulin; Z79.02 Long term (current) use of antithrombotics/antiplatelets; Z79.82 Long term (current) use of aspirin; Z79.890 Hormone replacement therapy; Z79.899 Other long term (current) drug therapy
CPT/HCPCS: 36415; 71046; 80048; 80053; 82947; 83880; 84484; 85025; 85027; 86704; 86706; 87340; 90999; 93005; 99285; J1643

== ENCOUNTER 2022-07-04 09:21 | Emergency (ER) | payer MEDICARE, SELFPAY ==
[2022-07-04] VITALS (7 sets, daily range): BP systolic 182–219; BP diastolic 63–79; PULSE 66–78; RESP 12–20; O2SAT 96–98; BMI 27.5
--- NOTE | ~2022-07-04 | XR_ITS ---
EXAMINATION: XR CHEST CLINICAL INFORMATION: Neck and jaw pain. COMPARISON: Chest radiograph dated 06/09/2022. TECHNIQUE: 2 views of the chest were obtained. FINDINGS: Chronic interstitial prominence is unchanged. Right basilar atelectasis versus early infiltrates, slightly decreased when compared to the prior examination. Resolution of previously seen left basilar opacities. No pleural effusion or pneumothorax. Stable cardiomediastinal silhouette. XR/XR chest 2V IMPRESSION: 1. Right basilar atelectasis versus early infiltrates, slightly decreased when compared to the prior examination. 2. Resolution of previously seen left basilar opacities.
--- NOTE | 2022-07-04 09:39 | ED_ITS ---
HPI - General Adult General Chief complaint: General Medical Stated complaint: NECK/JAW PAIN,DIALYSIS T-1 PER EMS Time Seen by Provider: 07/04/22 09:39 Source: patient, family, EMS and tableau administrator Mode of arrival: EMS Limitations: language barrier History of Present Illness HPI narrative: Patient is a 72-year-old female with history ESRD requiring dialysis presenting with posterior neck pain since this morning. Patient reports that she typically develops this same pain after her dialysis treatments which she receives on Mondays, Wednesdays, and Fridays. Patient had dialysis treatment yesterday but did not develop the neck pain right away. She states that when she woke this morning she did not have the pain, but that it developed after taking a nap. She used ibuprofen and Rui-Ceballos with little relief and states pain is currently a 9/10. She states the pain is worse with moving her head and feels better with direct pressure. She denies any falls, injury or trauma prior to onset. She states that the pain is consistent with prior episodes but more severe. She denies any chest pain or shortness of breath. She denies any abdominal pain but does endorse mild nausea related to the pain. Denies any recent fevers. MD complaint: Posterior neck pain Onset (ago): hour(s) Location: back Severity: severe Severity scale (1-10): 9 Quality: sharp Pain Consistency: constant Relieving factors: none Exacerbating factors: movement Associated symptoms: denies other symptoms Treatments prior to arrival: NSAID Related Data Home Medications Medication Instructions Recorded Confirmed ascorbic acid (vitamin C) 1,000 mg 1,000 mg PO DAILY 06/09/22 06/09/22 tablet (Vitamin C) aspirin 81 mg tablet,delayed 81 mg PO DAILY 06/09/22 06/09/22 release bumetanide 2 mg tablet 1 mg PO BID 06/09/22 06/09/22 carvedilol 25 mg tablet 25 mg PO BID 06/09/22 06/09/22 cholecalciferol (vitamin D3) 50 50 mcg PO DAILY 06/09/22 06/09/22 mcg (2,000 unit) tablet clopidogrel 75 mg tablet 75 mg PO DAILY 06/09/22 06/09/22 cyanocobalamin (vitamin B-12) 1,000 mcg PO DAILY 06/09/22 06/09/22 1,000 mcg tablet hydralazine 50 mg tablet 50 mg PO TID 06/09/22 06/09/22 insulin NPH isoph U-100 human 100 8 unit subcut TID 06/09/22 06/09/22 unit/mL (3 mL) subcutaneous pen (Novolin N FlexPen) insulin glargine 100 unit/mL (3 7 unit subcut BEDTIME 06/09/22 06/09/22 mL) subcutaneous pen (Lantus Solostar U-100 Insulin) isosorbide mononitrate 60 mg 60 mg PO DAILY 06/09/22 06/09/22 tablet,extended release 24 hr levothyroxine 150 mcg tablet 150 mcg PO DAILY@0600 06/09/22 06/09/22 nifedipine 30 mg tablet,extended 30 mg PO DAILY 06/09/22 06/09/22 release rosuvastatin 20 mg tablet 20 mg PO BEDTIME 06/09/22 06/09/22 Previous Rx's Medication Instructions Recorded cyclobenzaprine 5 mg tablet 5 mg PO TID PRN muscle spasm #10 07/04/22 tabs Allergies Allergy/AdvReac Type Severity Reaction Status Date / Time codeine Allergy Nausea and Verified 06/09/22 11:26 Vomiting Review of Systems Review of Systems: As per HPI Yes all other systems are reviewed and are negative Constitutional: Constitutional: Reports as per HPI [facility] Past Medical History Medical History (Updated 07/04/22 @ 15:29 by Alka Cooper NP) Anemia of chronic disease Asthma AV fistula ESRD needing dialysis HTN (hypertension) Hypothyroid Type 2 diabetes mellitus Social History Social History (Updated 06/09/22 @ 13:43 by PAT Morse) Household Members: None Housing: Apartment Do you presently have visiting nurse or other home services: No Alcohol intake: never Patient Tobacco Use Status: Former Tobacco user Advance Directives: No service: No Current occupational status: retired Physical Exam ED Vital Signs: Vital Signs - 24 hr 07/04/22 09:52 07/04/22 11:04 07/04/22 13:16 Pulse Rate 68 Respiratory Rate 20 16 18 Blood Pressure 219/79 H Pulse Oximetry 98 Oxygen Delivery Method Room Air 07/04/22 13:59 07/04/22 15:19 07/04/22 16:02 Pulse Rate 67 66 Respiratory Rate 12 16 18 Blood Pressure 203/63 H 205/65 H Pulse Oximetry 96 98 Oxygen Delivery Method Room Air Room Air BMI result Body Mass Index 27.5 Const General: cooperative and healthy appearing Orientation/consciousness: oriented to person, oriented to place, oriented to time and patient oriented x3 Limitations: no limitations HENMT Head: Yes normocephalic and Yes atraumatic Ears: external ears normal General nose exam: Normal external nose present Face and sinus: Yes face symmetric Mouth: oropharynx normal and moist mucous membranes Throat: Yes uvula midline Eyes Pupils: Equal, round and reactive pupils present Neck Neck: Yes normal visual inspection and Yes supple Resp Effort & Inspection: normal respiratory effort and able to speak in complete sentences Auscultation: clear to auscultation bilaterally Cardio Rate: regular rate Rhythm: regular rhythm Heart sounds: S1 normal heart sound present and S2 normal heart sound present GI Palpation (GI): Soft to palpation and nontender Auscultation: normoactive bowel sounds General: Yes no CVA tenderness Back/Spine/Pelvis Other: tenderness over right trapezius with palpation Back: no CVA tenderness Cervical Spine: normal cervical lordosis, cervical muscular tenderness, pain with cervical ROM, cervical spasm, No Cervical spine tenderness, No step off deformity and other (tenderness to palpation over right trapezius) Thoracic/Lumbar Spine: No thoracic spinal tenderness and No lumbar spinal tenderness Skin General skin exam: elasticity normal and turgor normal Neuro General: oriented to person, oriented to place, oriented to time, patient oriented x3, moves all extremities, no focal motor deficits and CN's II-XI intact bilaterally Cranial nerves: Yes Equal, round and reactive pupils present Cognition (Neuro): normal cognition Extrem Other: Fistula present to right arm General: Yes full ROM, Yes no pedal edema and Yes no calf tenderness Psych Mental Status: mental status grossly normal Affect: normal affect Thought process: Normal thought process present Course Course Course Narrative: 11:46 patient reports some relief of pain after administration of morphine but states that she continues to have pain when she moves and it feels as though having muscle spasms. Will order dose of IV Valium. Critical creatinine of 4.47 received from lab, compared to labs from 06/11/22 and value is similar, likely baseline r/t her ESRD. 13:16 Patient continues to complain of 7/10 pain despite IV morphine and valium. Will obtain delta troponin, repeat dose of morphine. Will obtain CTA head and neck to rule out dissection given pain resistant to medications. Patient and daughter agreeable with plan of care. 15:14 Radiology stating to RN that patient cannot have CTA head and neck unless she is dialyzed within 24 hours. Patient is not due for dialysis until Wednesday. Discussed case with Dr. Kline who agrees that patient's symptoms and physical exam findings are suggestive of musculoskeletal cause. He recommends increasing dose of morphine and reassessing. Patient and family updated on plan. Will hold off on CTA at this time. 15:23 Patient states pain is now 5/10. Feel patient is stable to discharge home at this time, Dr. Peña in agreement. Instructed patient to follow up with P [facility] on Wednesday. Will prescribe Flexeril as needed for muscle spasms. Return precautions discussed at bedside with patient and daughter. Medications Administered Discontinued Medications Generic Name Dose Route Start Last Admin Trade Name Freq PRN Reason Stop Dose Admin Diazepam 2 mg 07/04/22 11:44 07/04/22 11:58 Diazepam 10 Mg/2 Ml Cartridge IVPUSH 07/04/22 11:45 2 mg STAT STA Administration Morphine Sulfate 2 mg 07/04/22 10:57 07/04/22 11:04 Morphine Sulfate 2 Mg/Ml Cartridge IVPUSH 07/04/22 10:58 2 mg ONCE ONE Administration Protocol Morphine Sulfate 2 mg 07/04/22 13:04 07/04/22 13:16 Morphine Sulfate 2 Mg/Ml Cartridge IVPUSH 07/04/22 13:05 2 mg ONCE ONE Administration Protocol Morphine Sulfate 4 mg 07/04/22 15:13 07/04/22 15:19 Morphine Sulfate 4 Mg/Ml Cartridge IVPUSH 07/04/22 15:14 4 mg ONCE ONE Administration Protocol Ondansetron HCl 4 mg 07/04/22 11:01 07/04/22 11:05 Ondansetron Hcl 4 Mg/2 Ml Vial IVPUSH 07/04/22 11:02 4 mg ONCE ONE Administration Medical Decision Making Medical Decision Making MDM Narrative: Patient is a 72-year-old female with history ESRD requiring dialysis presenting with posterior neck pain since this morning. On exam patient is awake, A+Ox3, crying, appears uncomfortable, respirations even and unlabored, LS CTA throughout, no midline cervical spinal tenderness, crepitus, stepoff or d eformity, tenderness to palpation over right trapezius. Patient reports pain is consistent with previous episodes. Based on reported history and physical exam findings, feel pain is likely musculoskeletal. Feel ACS is less likely but will obtain troponin and EKG. Less likely carotid dissection. Unlikely cervical fracture as patient denies any trauma. Plan: will obtain baseline labs, EKG, CXR, pain management, reassess Please refer to course for remaining clinical decision making. Differential Diagnosis Differential Diagnoses: The differential diagnosis associated with the presentation includes As above Admission/Observation Consideration of admission/observation: Escalation of care including admission/observation considered Lab Data MDM Lab Attestation statement: I reviewed the patient's lab results. 07/04/22 10:01 07/04/22 10:01 Labs: Lab Results 07/04/22 07/04/22 07/04/22 Range/Units 10:01 10:01 10:34 WBC 5.2 (4.8-10.8) X10*3/uL RBC 4.31 D (4.20-5.50) X10*6/uL Hgb 13.1 D (12.0-16.0) g/dl Hct 38.6 D (37.0-47.0) % MCV 89.6 (80.0-98.0) fL MCH 30.4 (27.0-33.0) pg MCHC 33.9 (31.0-35.0) g/dl RDW 12.8 (11.0-16.0) % Plt Count 213 (160-400) X10*3/uL MPV 9.8 (9.4-12.3) fL Immature Gran % (Auto) 0.4 (0.0-0.4) % Neut % (Auto) 74.3 H (45-73) % Lymph % (Auto) 15.4 L (20-40) % [place] % (Auto) 8.3 (2-11) % Eos % (Auto) 0.8 (0-4) % Baso % (Auto) 0.8 (0-2) % Lymph # (Auto) 0.8 L (1.2-4.9) X10*3/uL [place] # (Auto) 0.4 (0.1-1.2) X10*3/uL Eos # (Auto) 0.0 (0.0-0.4) X10*3/uL Baso # (Auto) 0.0 (0.0-0.2) X10*3/uL Abs Immat Gran (auto) 0.02 (0.00-0.03) X10*3/uL Absolute Neuts (auto) 3.9 (2.0-8.3) x10*3/uL Absolute Nucleated RBC 0.000 (0.0-0.012) X10*3/uL Nucleated RBC % (auto) 0.0 (0.0-0.2) /100WBC Sodium 135 (135-145) mmol/L Potassium 3.8 (3.3-5.1) mmol/L Chloride 94 L (96-108) mmol/L Carbon Dioxide 28 (22-29) mmol/L Anion Gap 17 (12-20) BUN 29 H (9-16) mg/dL Creatinine 4.47 H* (0.5-1.4) mg/dL Estim Creat Clear Calc 11.2 Estimated GFR 10 POC Glucose (60-115) mg/dL Random Glucose 147 H (60-115) mg/dL Calcium 9.4 D (8.4-10.2) mg/dL Magnesium 2.3 (1.6-2.6) mg/dL Total Bilirubin 0.5 (0.0-1.0) mg/dL AST 22 (5-31) U/L ALT 16 (0-31) U/L Alkaline Phosphatase 159 H (39-117) U/L Troponin I High Sens 44.4 H (<3.5-17.0) ng/L Total Protein 6.5 (6.5-8.0) g/dL Albumin 3.7 (3.5-5.0) g/dL Lipase 68 (8-78) U/L 07/04/22 07/04/22 Range/Units 13:29 14:01 WBC (4.8-10.8) X10*3/uL RBC (4.20-5.50) X10*6/uL Hgb (12.0-16.0) g/dl Hct (37.0-47.0) % MCV (80.0-98.0) fL MCH (27.0-33.0) pg MCHC (31.0-35.0) g/dl RDW (11.0-16.0) % Plt Count (160-400) X10*3/uL MPV (9.4-12.3) fL Immature Gran % (Auto) (0.0-0.4) % Neut % (Auto) (45-73) % Lymph % (Auto) (20-40) % [place] % (Auto) (2-11) % Eos % (Auto) (0-4) % Baso % (Auto) (0-2) % Lymph # (Auto) (1.2-4.9) X10*3/uL [place] # (Auto) (0.1-1.2) X10*3/uL Eos # (Auto) (0.0-0.4) X10*3/uL Baso # (Auto) (0.0-0.2) X10*3/uL Abs Immat Gran (auto) (0.00-0.03) X10*3/uL Absolute Neuts (auto) (2.0-8.3) x10*3/uL Absolute Nucleated RBC (0.0-0.012) X10*3/uL Nucleated RBC % (auto) (0.0-0.2) /100WBC Sodium (135-145) mmol/L Potassium (3.3-5.1) mmol/L Chloride (96-108) mmol/L Carbon Dioxide (22-29) mmol/L Anion Gap (12-20) BUN (9-16) mg/dL Creatinine (0.5-1.4) mg/dL Estim Creat Clear Calc Estimated GFR POC Glucose 326 H (60-115) mg/dL Random Glucose (60-115) mg/dL Calcium (8.4-10.2) mg/dL Magnesium (1.6-2.6) mg/dL Total Bilirubin (0.0-1.0) mg/dL AST (5-31) U/L ALT (0-31) U/L Alkaline Phosphatase (39-117) U/L Troponin I High Sens 48.1 H (<3.5-17.0) ng/L Total Protein (6.5-8.0) g/dL Albumin (3.5-5.0) g/dL Lipase (8-78) U/L Independent Interpretation I performed an independent interpretation of an: EKG, Plain X-Ray and CT Scan Interpretation: EKG: normal sinus rhythm, rate 70 BPM, no evidence of STEMI, normal ND and QT intervals I independently reviewed the x-ray and CT scans and agree with the radiologist's interpretation. Radiology Impression Discussion of test interpretation with radiology: I have reviewed the radiologist's reading. Radiologist Impression: FINDINGS: Chronic interstitial prominence is unchanged. Right basilar atelectasis versus early infiltrates, slightly decreased when compared to the prior examination. Resolution of previously seen left basilar opacities. No pleural effusion or pneumothorax. Stable cardiomediastinal silhouette. XR/XR chest 2V IMPRESSION: 1. Right basilar atelectasis versus early infiltrates, slightly decreased when compared to the prior examination. ? 2. Resolution of previously seen left basilar opacities. Independent Historian Clinical information obtained from an independent historian. History obtained from or confirmed by: Other (daughter) External Record Review External record reviewed: Inpatient record, Office record and Outpatient record Prescription Management I considered prescription management with: Pain Medication Chronic Conditions Patient?s care impacted by: Diabetes and Other (ESRD) Discharge Plan Discharge Clinical Impression: Cervical paraspinal muscle spasm Patient Disposition: Home, Self-Care Instructions: Muscle Spasm (ED) Additional Instructions: You have been evaluated in the emergency department today for neck pain. Your evaluation did not find evidence of medical conditions requiring emergent intervention at this time. Please rest, apply heat for 10-15 minutes at a time throughout the day. You are being prescribed cyclobenzaprine which you may take up to 3 times daily as needed for muscle spasms. Please schedule an appointment for follow-up with your primary care provider on Wednesday. Return to the emergency department if you experience worsening pain, numbness, tingling, change of color in your fingers, chest pain, shortness of breath, dizziness, lightheadedness, loss of consciousness, or any other concerning symptoms. Prescriptions: New cyclobenzaprine 5 mg tablet 5 mg PO TID PRN (Reason: muscle spasm) Qty: 10 0RF No Action carvedilol 25 mg tablet 25 mg PO BID bumetanide 2 mg tablet 1 mg PO BID nifedipine 30 mg tablet extended release 30 mg PO DAILY clopidogrel 75 mg tablet 75 mg PO DAILY isosorbide mononitrate 60 mg tablet extended release 24 hr 60 mg PO DAILY levothyroxine 150 mcg tablet 150 mcg PO DAILY@0600 Novolin N FlexPen 100 unit/mL (3 mL) insulin pen 8 unit subcut TID rosuvastatin 20 mg tablet 20 mg PO BEDTIME insulin glargine [Lantus Solostar U-100 Insulin] 100 unit/mL (3 mL) insulin pen 7 unit subcut BEDTIME ascorbic acid (vitamin C) [Vitamin C] 1,000 mg Tablet 1,000 mg PO DAILY cyanocobalamin (vitamin B-12) 1,000 mcg Tablet 1,000 mcg PO DAILY aspirin 81 mg Tablet,Delayed Release (Dr/Ec) 81 mg PO DAILY hydralazine 50 mg Tablet 50 mg PO TID cholecalciferol (vitamin D3) 50 mcg (2,000 unit) Tablet 50 mcg PO DAILY Print Language: Serbian
--- NOTE | 2022-07-04 09:40 | ECG_ITS ---
Test Reason : jaw pain after dialysis Blood Pressure : / mmHG Vent. Rate : 070 BPM Atrial Rate : 070 BPM P-R Int : 198 ms QRS Dur : 080 ms QT Int : 444 ms P-R-T Axes : 061 023 046 degrees QTc Int : 479 ms Normal sinus rhythm Nonspecific ST and T wave abnormality Abnormal ECG When compared with ECG of 09-JUN-2022 10:34, No significant change was found Referred By: Alka Cooper Electronically Signed By:Hari Simpson
[2022-07-04 10:05] LABS: MANUAL DIFF FLAG NO
[2022-07-04 10:07] LABS: Basophils Percent Auto 0.8 % (0-2); Eosinophils Percent Auto 0.8 % (0-4); Hematocrit 38.6 % (37.0-47.0); Hemoglobin 13.1 g/dl (12.0-16.0); Imm Gran Abs Auto 0.02 X10*3/uL (0.00-0.03); Imm Gran Pct Auto 0.4 % (0.0-0.4); Lymphocytes Absolute Auto 0.8 X10*3/uL (1.2-4.9); Lymphocytes Percent Auto 15.4 % (20-40); Mean Corpuscular HGB Conc 33.9 g/dl (31.0-35.0); Mean Corpuscular Hemoglobin 30.4 pg (27.0-33.0); Mean Corpuscular Volume 89.6 fL (80.0-98.0); Mean Platelet Volume 9.8 fL (9.4-12.3); Monocytes Absolute Auto 0.4 X10*3/uL (0.1-1.2); Monocytes Percent Auto 8.3 % (2-11); Neutrophils Absolute Auto 3.9 x10*3/uL (2.0-8.3); Neutrophils Percent Auto 74.3 % (45-73); Platelet Count 213 X10*3/uL (160-400); Red Blood Count 4.31 X10*6/uL (4.20-5.50); Red Cell Distribution Width 12.8 % (11.0-16.0); White Blood Count 5.2 X10*3/uL (4.8-10.8)
[2022-07-04 10:37] LABS: Troponin-I High Sensitivity 44.4 ng/L (<3.5-17.0)
[2022-07-04] MEDS: Morphine Sulfate 2 MG/ML CARTRIDGE IVPUSH ×2 (11:04→13:16)
[2022-07-04] MEDS: ondansetron HCL 4 MG/2 ML VIAL IVPUSH (11:05)
[2022-07-04 11:48] LABS: Alanine Aminotransferase 16 U/L (0-31); Albumin Level 3.7 g/dL (3.5-5.0); Alkaline Phosphatase 159 U/L (39-117); Anion Gap 17 (12-20); Aspartate Amino Transferase 22 U/L (5-31); Bilirubin Total 0.5 mg/dL (0.0-1.0); Blood Urea Nitrogen 29 mg/dL (9-16); Calcium 9.4 mg/dL (8.4-10.2); Carbon Dioxide 28 mmol/L (22-29); Chloride 94 mmol/L (96-108); Creatinine Clr Calc Pharmacy 11.2; Estimated Glomerular Filt Rate 10; Glucose Random 147 mg/dL (60-115); Lipase 68 U/L (8-78); Magnesium 2.3 mg/dL (1.6-2.6); Potassium 3.8 mmol/L (3.3-5.1); Sodium 135 mmol/L (135-145); Total Protein 6.5 g/dL (6.5-8.0)
[2022-07-04] MEDS: diazePAM 10 MG/2 ML CARTRIDGE 2 MG IVPUSH (11:58)
[2022-07-04 14:08] LABS: Glucose, Whole Blood 326 mg/dL (60-115)
[2022-07-04 14:08] LABS: Troponin-I High Sensitivity 48.1 ng/L (<3.5-17.0)
[2022-07-04] MEDS: Morphine Sulfate 4 MG/ML CARTRIDGE IVPUSH (15:19)
== END 2022-07-04 17:09 | disposition home or self-care (01) ==
PROVIDERS: Registered Nurse Emergency; Emergency Provider Emergency Medicine Emergency Medical Services
DX: M62.838 Other muscle spasm (principal); M54.2 Cervicalgia; E11.22 Type 2 diabetes mellitus with diabetic chronic kidney disease; I12.0 Hypertensive chronic kidney disease with stage 5 chronic kidney disease or end stage renal disease; N18.6 End stage renal disease; Z99.2 Dependence on renal dialysis; Z79.82 Long term (current) use of aspirin; Z79.899 Other long term (current) drug therapy
CPT/HCPCS: 36415; 71046; 80053; 82947; 83690; 83735; 84484; 85025; 93005; 96374; 96375; 96376; 99284; J2270; J2405; J3360